=== PATIENT | female | born 1950 | race Caucasian/White ===

== ENCOUNTER → 2018-04-17 10:28 | Outpatient (CLI) | payer MEDICARE, OTHER, SELFPAY ==
--- NOTE | 2018-04-17 | DI.RAD.S_ITS ---
PROCEDURE: XR ANKLE LT MIN 3V INDICATIONS: FALL, PAIN TECHNIQUE: 3 views of the ankle were acquired. COMPARISON: [facility], , ANKLE 3 VIEWS LEFT, 09/30/2007, 11:04. FINDINGS: Bones: Transversely oriented, intra-articular fracture involves the distal fibular metaphysis. Ankle mortise is symmetric. Soft tissues: No tibiotalar joint effusion. Achilles tendon appears normal. Lateral malleolar soft tissue swelling. IMPRESSION: Intra-articular distal fibular fracture. Dictated by: Seth Stallings [facility] Interpreted: Huy Dan MD on 04/17/2018 at 14:07 Approved by: Huy Dan M.D. on 04/17/2018 at 15:41
--- NOTE | 2018-04-17 | DI.RAD.S_ITS ---
PROCEDURE: XR FOOT LT MIN 3V INDICATIONS: FALL, PAIN TECHNIQUE: Arce views of the foot were acquired. COMPARISON: [facility], , FOOT 3V LEFT, 09/30/2007, 11:04. FINDINGS: Bones: No fractures or dislocations. Healed fracture deformity involving the distal shaft of the fifth metatarsal bone. No suspicious bony lesions. Soft tissues: No tibiotalar joint effusion. Achilles tendon appears normal. IMPRESSION: No displaced fracture seen. If there is continued pain, followup exam or additional imaging such as MRI or CT could be performed for further assessment. Dictated by: Seth Stallings [facility] Interpreted: Huy Dan MD on 04/17/2018 at 14:06 Approved by: Huy Dan M.D. on 04/17/2018 at 15:39
--- NOTE | 2018-04-17 | DI.RAD.S_ITS ---
PROCEDURE: XR ORBIT RT INDICATIONS: FALL, PAIN TECHNIQUE: 3 views of the orbits acquired. COMPARISON: None. FINDINGS: Bones: No fractures; orbital rims appear intact throughout. No suspicious bony lesions. Visualized sinuses appear clear. Soft tissues: No suspicious soft tissue calcifications or densities. IMPRESSION: No definite displaced fracture seen. If there is continued pain, followup exam or additional imaging such as MRI or CT could be performed for further assessment. Dictated by: Seth Stallings [facility] Interpreted: Huy Dan MD on 04/17/2018 at 14:04 Approved by: Huy Dan M.D. on 04/17/2018 at 15:39
== END ==
PROVIDERS: PCP Family Medicine; Visit Provider Family Medicine
DX: H57.11 Ocular pain, right eye (principal); S82.832A Other fracture of upper and lower end of left fibula, initial encounter for closed fracture; M79.672 Pain in left foot; M25.572 Pain in left ankle and joints of left foot
CPT/HCPCS: 70200; 73610; 73630

== ENCOUNTER → 2018-04-22 09:26 | Outpatient (CLI) | payer MEDICARE, OTHER, SELFPAY ==
--- NOTE | 2018-04-22 | DI.RAD.S_ITS ---
PROCEDURE: XR ANKLE LT MIN 3V INDICATIONS: LEFT ANKLE FRACTURE TECHNIQUE: 3 views of the ankle were acquired. COMPARISON: [facility], CR, XR ANKLE LT MIN 3V, 04/17/2018, 10:33. FINDINGS: Bones: Transverse fracture of the lateral malleolus is seen, minimally displaced and unchanged since the prior study. Persistent fracture lucency. Spurring at the posterior calcaneus. Tibiotalar joint degenerative spurring is present. Soft tissues: No tibiotalar joint effusion. Achilles tendon appears normal. Lateral soft tissue swelling improved. IMPRESSION: Unchanged alignment of lateral malleolar fracture. Dictated by: Chay Giles M.D. on 04/22/2018 at 10:31 Approved by: Chay Giles M.D. on 04/22/2018 at 10:36
== END ==
PROVIDERS: Family Provider Family Medicine; PCP Family Medicine; Visit Provider Family Medicine
DX: S82.62XD Displaced fracture of lateral malleolus of left fibula, subsequent encounter for closed fracture with routine healing (principal)
CPT/HCPCS: 73610

== ENCOUNTER → 2018-05-13 09:25 | Outpatient (CLI) | payer MEDICARE, OTHER, SELFPAY ==
--- NOTE | 2018-05-13 | DI.RAD.S_ITS ---
PROCEDURE: XR ANKLE LT MIN 3V INDICATIONS: LEFT ANKLE FRACTURE TECHNIQUE: 3 views of the ankle were acquired. COMPARISON: [facility], CR, XR ANKLE LT MIN 3V, 04/17/2018, 10:33. [facility], CR, XR ANKLE LT MIN 3V, 04/22/2018, 10:28. FINDINGS: Bones: Fracture alignment is stable and fracture lucency is less distinct indicating healing of the distal fibular intra-articular metaphyseal fracture. Ankle mortise is symmetric. Small posterior calcaneal enthesophyte. Soft tissues: No tibiotalar joint effusion. Achilles tendon appears normal. IMPRESSION: Slight further healing of distal fibular metaphyseal fracture. Dictated by: Seth HERRERA Interpreted: Chay Giles MD on 05/13/2018 at 9:42 Approved by: Chay Giles M.D. on 05/13/2018 at 13:42
== END ==
PROVIDERS: Family Provider Family Medicine; PCP Family Medicine; Visit Provider Family Medicine
DX: S89.392D Other physeal fracture of lower end of left fibula, subsequent encounter for fracture with routine healing (principal)
CPT/HCPCS: 73610

== ENCOUNTER → 2018-06-06 08:27 | Outpatient (CLI) | payer MEDICARE, OTHER, SELFPAY ==
--- NOTE | 2018-06-06 | DI.RAD.S_ITS ---
PROCEDURE: XR ANKLE LT MIN 3V INDICATIONS: LEFT ANKLE FRACTURE TECHNIQUE: 3 views of the ankle were acquired. COMPARISON: [facility], CR, XR ANKLE LT MIN 3V, 05/13/2018, 9:33. FINDINGS: Bones: No change in alignment of lateral malleolar fracture. There is interval healing callus formation. Posterior plantar calcaneal spurs as before. Soft tissues: No tibiotalar joint effusion. Achilles tendon appears normal. IMPRESSION: Unchanged alignment of lateral malleolar fracture Dictated by: Chay Giles M.D. on 06/06/2018 at 9:28 Approved by: Chay Giles M.D. on 06/06/2018 at 9:30
== END ==
PROVIDERS: PCP Family Medicine; Visit Provider Family Medicine
DX: S82.62XD Displaced fracture of lateral malleolus of left fibula, subsequent encounter for closed fracture with routine healing (principal); M77.32 Calcaneal spur, left foot
CPT/HCPCS: 73610

== ENCOUNTER → 2018-07-04 12:46 | Outpatient (CLI) | payer MEDICARE, OTHER, SELFPAY ==
[2018-07-04 14:02] LABS: Cholesterol 151 mg/dL (140-199); HDL Cholesterol 59 mg/dL (40-60); LDL Cholesterol Calculated 73 mg/dL (<100); Triglycerides 95 mg/dL (35-150)
[2018-07-04 14:07] LABS: Hemoglobin A1C% w Est Avg Glu 7.4 % (4.0-6.0)
== END ==
PROVIDERS: Family Provider Family Medicine; PCP Family Medicine; Visit Provider Family Medicine
DX: E11.9 Type 2 diabetes mellitus without complications (principal)
CPT/HCPCS: 36415; 80061; 83036

== ENCOUNTER → 2018-08-26 13:13 | Outpatient (CLI) | payer MEDICARE, OTHER, SELFPAY ==
[2018-08-26 14:21] LABS: Blood Urea Nitrogen 27 mg/dL (7-17); Estimated Glomerular Filt Rate 55.1 mL/min (>60)
== END ==
PROVIDERS: Family Provider Family Medicine; PCP Family Medicine; Visit Provider Urology
DX: R31.0 Gross hematuria (principal)
CPT/HCPCS: 36415; 82565; 84520

== ENCOUNTER → 2018-08-28 13:14 | Outpatient (CLI) | payer MEDICARE, OTHER, SELFPAY ==
--- NOTE | 2018-08-28 | DI.CT.S_ITS ---
PROCEDURE: CT ABDOMEN PELVIS WO/W CON INDICATIONS: GROSS HEMATURIA TECHNIQUE: After the administration of oral contrast, 5 mm thick sections acquired from the diaphragms to the iliac crests. After the administration of intravenous contrast, 5 mm thick sections acquired from the diaphragms to the symphysis. 5 mm thick coronal and sagittal reformats were acquired. For radiation dose reduction, the following was used: automated exposure control, adjustment of mA and/or kV according to patient size. COMPARISON: [facility], CT, KIDNEY/ URETER/BLADDER, 03/06/2016, 13:11. FINDINGS: Image quality: Excellent. ABDOMEN: Lung bases: Lung bases are clear. Heart size is normal. Solid organs: There is diffuse hepatic steatosis. No focal liver masses. Gallbladder is unremarkable. Biliary system is non-dilated. Pancreas enhances normally. Spleen is normal in size and enhancement. No adrenal nodules. There are multiple calcifications present in both kidneys, likely representing a combination of stones and vascular calcifications. There is a definite right renal calculus measuring 3 mm. There is no hydronephrosis. There are no suspicious enhancing renal lesions. There are multiple bilateral small renal cysts. The ureters are of normal caliber without focal filling defects. No ureteral stones. The bladder has a thin wall. Bowel and peritoneum: Stomach, small and large bowel loops are normal in caliber and wall thickness. No free fluid or air. Sigmoid diverticulosis without evidence of diverticulitis. Nodes and vessels: No retroperitoneal or mesenteric adenopathy by size criteria. Aorta and inferior vena are normal in caliber. Miscellaneous: No ventral hernias. PELVIS: Genitourinary: Bladder wall thickness is normal. Remote hysterectomy. Miscellaneous: Lifting or hernia containing fat. No inguinal adenopathy. Bones: No suspicious bony lesions. No vertebral body compression fractures. There is a calcified left paracentral disc protrusion at L5-S1 impinging on the left S1 nerve root in the left lateral recess. There is a central posterior calcified disc protrusion at L4-L5 indenting the thecal sac. IMPRESSION: 1. Nonobstructing stones. Calcifications in the kidneys likely represent a combination of vascular calcifications and small renal calculi. No hydronephrosis. 2. No evidence of renal masses or ureteral masses. 3. Remote hysterectomy. 4. Hepatic steatosis. 5. Calcified disc protrusions at L4-L5 and L5-S1 as described above. Dictated by: Сергей Powers M.D. on 08/28/2018 at 15:21 Approved by: Сергей Powers M.D. on 08/28/2018 at 15:29
== END ==
PROVIDERS: PCP Family Medicine; Visit Provider Urology
DX: R31.0 Gross hematuria (principal); N20.0 Calculus of kidney; K76.0 Fatty (change of) liver, not elsewhere classified; M51.26 Other intervertebral disc displacement, lumbar region; M51.27 Other intervertebral disc displacement, lumbosacral region; Z90.710 Acquired absence of both cervix and uterus
CPT/HCPCS: 74178; Q9967

== ENCOUNTER → 2018-11-20 15:34 | Outpatient (CLI) | payer MEDICARE, OTHER, SELFPAY ==
--- NOTE | 2018-11-20 | DI.MG.S_ITS ---
BILATERAL DIGITAL SCREENING MAMMOGRAM 3D/2D WITH CAD: 11/20/2018 CLINICAL: Routine screening. Comparison is made to exams dated: 08/08/2017 mammogram, 04/21/2015 mammogram, and 04/13/2014 mammogram - [facility]. The tissue of both breasts is predominantly fatty. Current study was also evaluated with a Computer Aided Detection (CAD) system. There are benign calcifications in both breasts. No significant masses, calcifications, or other findings are seen in either breast. There has been no significant interval change. IMPRESSION: There is no mammographic evidence of malignancy. A 1 year screening mammogram is recommended. This exam was interpreted at Station ID: [id number]. NOTE: For mammograms, a report in lay terms will be sent to the patient. Approximately 15% of breast malignancies will not be visualized mammographically. In the management of a palpable breast mass, a negative mammogram must not discourage biopsy of a clinically suspicious lesion. Electronically Signed By: Ramez patricia/les:11/21/2018 12:58:41 letter sent: Normal Exam ACR BI-RADS Category 2: Benign Finding(s) 3342F
== END ==
PROVIDERS: PCP Family Medicine; Visit Provider Family Medicine
DX: Z12.31 Encounter for screening mammogram for malignant neoplasm of breast (principal)
CPT/HCPCS: 77063; 77067

== ENCOUNTER → 2019-02-24 12:13 | Outpatient (CLI) | payer MEDICARE, OTHER, SELFPAY ==
--- NOTE | 2019-02-24 | DI.RAD.S_ITS ---
PROCEDURE: XR LUMBAR SPINE 2-3V INDICATIONS: LUMBAR RADICUOPATHY TECHNIQUE: 3 views of the lumbar spine were acquired. COMPARISON: [facility], CT, CT ABDOMEN PELVIS WO/W CON, 08/28/2018, 13:22. FINDINGS: Bones: 5 [id number] vertebrae are present. There is straightening of the normal lumbar lordosis. No vertebral body compression fractures. No suspicious bony lesions. There is multilevel intervertebral disc space height loss with reactive endplate sclerosis worst at L4-L5 and L5-S1. There is multilevel facet arthropathy worst at L5-S1 and L4-L5 which results in osseous neuroforaminal narrowing at these levels. Soft tissues: Calcified plaque of the abdominal aorta and branch vessels are noted. Nonobstructive bowel gas pattern. Rounded pelvic phleboliths are noted in the right hemipelvis. IMPRESSION: Moderate multilevel degenerative changes of the lumbar spine resulting in osseous neuroforaminal narrowing at L5-S1 and L4-L5. Dictated by: Chauncey Irizarry M.D. on 02/24/2019 at 15:31 Approved by: Chauncey Irizarry M.D. on 02/24/2019 at 15:34
== END ==
PROVIDERS: PCP Family Medicine; Visit Provider Family Medicine
DX: M47.26 Other spondylosis with radiculopathy, lumbar region (principal); M47.27 Other spondylosis with radiculopathy, lumbosacral region; M48.061 Spinal stenosis, lumbar region without neurogenic claudication; M48.07 Spinal stenosis, lumbosacral region
CPT/HCPCS: 72100

== ENCOUNTER 2019-07-24 13:41 | Day surgery (SDC) | payer MEDICARE, OTHER, SELFPAY ==
--- NOTE | 2019-07-24 | PATH_ITS ---
[facility] Accession Number: [id number] . 01 Material submitted: . colon - TRANSVERSE COLON POLYP . 02 Diagnosis: Transverse Colon, Polyp: Tubular adenoma. MRV 07/28/2019 0939 Local . 02 Electronically signed: . Mynor Martell MD, PhD, Pathologist NPI- [id number] . 01 Gross description: . TRANSVERSE COLON POLYP: Received in formalin is 1 fragment(s) of michel, soft tissue measuring 0.3 x 0.2 x 0.2 cm submitted entirely in 1 cassette(s) /QBJ 07/25/2019 0536 Local . 02 Pathologist provided ICD-10: D12.3 . 02 CPT . 395837 Performed at: 01 [facility] [address] [facility], [place], [place] [id number] MD Jordan Vasquez MD Phone: [phone] Performed at: 02 [facility] [address] [place], [place] [id number] MD Nelly Keene MD Phone: [phone]
[2019-07-24 14:02] VITALS: BP 124/83; PULSE 95; RESP 16; TEMP 36.6; O2SAT 98; BMI 29.7
[2019-07-24] MEDS: SODIUM CHLORIDE 0.9% 1,000 ML 200 ML IV (14:32)
--- NOTE | 2019-07-24 15:15 | PM.HP.1 ---
History of Present Illness History of Present Illness Date Patient Seen: 07/24/19 Time Patient Seen: 15:15 Chief complaint: [id number] Narrative: Patient presents for colorectal screening. T the previous screening 5 years ago which demonstrated adenomatous polyps which were resected. No personal or family history of colon cancer. On further history denies any recent gastrointestinal symptoms. No nausea, vomiting, abdominal pain, loss of appetite, unexplained weight loss, change in bowel habits, diarrhea, constipation, melena, hematochezia, or bright red blood per rectum. Patient History Medical History (Updated 07/24/19 @ 15:16 by Juan Carlos Munoz MD) Diabetes (Acute) Surgical History (Updated 07/24/19 @ 15:16 by Juan Carlos Munoz MD) H/O: hysterectomy (Acute) Family & Social History Social History: household members spouse Tobacco & Substance use: Smoking Status Never smoker alcohol intake never Substance Use Type does not use Meds Home Medications and Allergies Home Medications Medication Instructions Recorded Confirmed Type Prevacid 24Hr 15 mg DAILY 07/24/19 07/24/19 History Vitamin D2 1,000 units DAILY 07/24/19 07/24/19 History atorvastatin 10 mg DAILY 07/24/19 07/24/19 History glipizide 5 mg DAILY 07/24/19 07/24/19 History losartan 50 mg DAILY 07/24/19 07/24/19 History metformin 500 mg BID 07/24/19 07/24/19 History Allergies Allergy/AdvReac Type Severity Reaction Status Date / Time No Known Drug Allergies Allergy Verified 07/24/19 14:24 Review of Systems Review of Systems Narrative: A 10 point review of systems is negative except as noted in the HPI Exam Vital Signs (past 8 hours): - 07/24/19 14:02 Temperature 97.8 F Pulse Rate 95 H Respiratory Rate 16 Blood Pressure 124/83 Pulse Oximetry 98 Oxygen Delivery Method Room Air Narrative Exam Narrative: General-no acute distress, well nourished HEENT-moist mucous membranes, no scleral icterus Neck-supple, no lymphadenopathy Chest- non labored respirations, clear to auscultation bilaterally Cardiac-regular rate no peripheral edema Abdomen-soft, nontender, non distended Extremities-warm, well perfused Neurological-alert and oriented, no focal deficits Assessment & Plan Assessment and plan (1) Screening for colon cancer: Current visit: Yes Status: Acute Assessment & Plan narrative: The patient requires colorectal screening and colonoscopy is recommended. Technical details were discussed. Risks, benefits, alternatives explained. Risks including but not limited to myocardial infarction, aspiration, bleeding, pain, missed lesion, incomplete examination, need for further radiographic studies, colonic perforation, and need for major abdominal surgery were discussed. All questions were answered to their satisfaction, and they are in agreement with this plan.
[2019-07-24] MEDS: fentaNYL 250 MCG/5 ML INJ IV (15:33)
[2019-07-24] MEDS: MIDAZOLAM 5 MG/5 ML VIAL IV (15:34)
--- NOTE | 2019-07-24 15:39 | PM.OP.ENDO ---
Operative Date/Time/Diagnoses Date of procedure: 07/24/19 Time of procedure: 15:39 Pre-op diagnosis: screening colonoscopy Post-op diagnosis: same Procedure & Clinicians Study performed: colonoscopy Same procedure as scheduled: Yes Indications: 69-year-old female last colonoscopy 5 years ago demonstrate adenomas polyps which were resected presents for routine screening Surgeon: Juan Carlos Munoz Procedure Notes SCOAP/Timeout: Performed Procedure in detail: Patient placed in left lateral decubitus position. Time out was performed. Procedural sedation was administered with Versed and Fentanyl. A rectal exam demonstrated no external hemorrhoids no internal masses. Colonoscopy scope was placed into the rectum and advanced through the colon to the cecum. The ileocecal valve was identified. The scope was then slowly withdrawn examining colon thoroughly in all directions. The colonoscopy was notable for the following 1. Adenomatous appearing polyp within transverse colon resected with biopsy forceps. Hemostatic. 2. Sigmoid diverticulosis 3. Quality of prep excellent Scope withdrawal time: 6 Sedation minutes: 18 Findings: diverticulosis Specimen(s): other Complications: none Impression: Polyp Post-procedure Recommendations: Colonscopy in 5 years Disposition: same day surgery
[2019-07-24 15:42] VITALS: BP 119/68; PULSE 68; RESP 12; TEMP 36.4; O2SAT 95
[2019-07-24 15:47] VITALS: BP 100/62; PULSE 68; RESP 12; O2SAT 94
[2019-07-24 15:53] VITALS: BP 102/64; PULSE 76; RESP 14; O2SAT 97
[2019-07-24 15:54] VITALS: BP 101/67; PULSE 68; RESP 14; O2SAT 98
[2019-07-24 16:37] VITALS: BP 106/72; PULSE 69; RESP 12; TEMP 36.2; O2SAT 96
== END 2019-07-24 16:25 | disposition home or self-care (01) ==
PROVIDERS: PCP Family Medicine; Referring Provider Family Medicine; Visit Provider Surgery
PROC: 0DJD8ZZ Inspection of Lower Intestinal Tract, Via Natural or Artificial Opening Endoscopic (ICD-10-PCS; CPT 45378; principal; 2019-07-24 14:30)
DX: Z12.11 Encounter for screening for malignant neoplasm of colon (principal); Z86.010 Personal history of colon polyps; K57.30 Diverticulosis of large intestine without perforation or abscess without bleeding; D12.3 Benign neoplasm of transverse colon
CPT/HCPCS: 45380; 99152; J2250; J3010

== ENCOUNTER → 2021-04-12 12:27 | Outpatient (CLI) | payer MEDICARE, OTHER, SELFPAY ==
--- NOTE | 2021-04-12 | DI.MG.S_ITS ---
BILATERAL DIGITAL SCREENING MAMMOGRAM 3D/2D WITH CAD: 04/12/2021 CLINICAL: Routine screening. Comparison is made to exams dated: 11/20/2018 mammogram, 08/08/2017 mammogram, and 04/21/2015 mammogram - [facility]. The tissue of both breasts is predominantly fatty. Current study was also evaluated with a Computer Aided Detection (CAD) system. There are benign calcifications in both breasts. No significant masses, calcifications, or other findings are seen in either breast. There has been no significant interval change. IMPRESSION: BENIGN There is no mammographic evidence of malignancy. A 1 year screening mammogram is recommended. This exam was interpreted at Station ID: [id number]. NOTE: For mammograms, a report in lay terms will be sent to the patient. Approximately 15% of breast malignancies will not be visualized mammographically. In the management of a palpable breast mass, a negative mammogram must not discourage biopsy of a clinically suspicious lesion. Electronically Signed By: Jose mesa/les:04/12/2021 13:29:01 letter sent: Normal Exam ACR BI-RADS Category 2: Benign Finding(s) [id number]
== END ==
PROVIDERS: PCP Family Medicine; Referring Provider Family Medicine; Visit Provider Family Medicine
DX: Z12.31 Encounter for screening mammogram for malignant neoplasm of breast (principal)
CPT/HCPCS: 77063; 77067

== ENCOUNTER → 2021-04-12 12:30 | Outpatient (CLI) | payer MEDICARE, OTHER, SELFPAY ==
--- NOTE | 2021-04-12 | DI.RAD.S_ITS ---
PROCEDURE: XR DEXA AXIAL SKELETON INDICATIONS: Asymptomatic menopausal state COMPARISON: None. FINDINGS: This blank DEXA report has been sent in error by the PACS system. The correct and complete report will be forthcoming in 1-2 days. Thank you for your patience and understanding. Dictated by: Argenis Trujillo MD, PhD on 04/12/2021 at 13:10 Approved by: Argenis Trujillo MD, PhD on 04/12/2021 at 13:10
== END ==
PROVIDERS: PCP Family Medicine; Referring Provider Family Medicine; Visit Provider Family Medicine
DX: Z78.0 Asymptomatic menopausal state (principal); E11.9 Type 2 diabetes mellitus without complications; Z82.62 Family history of osteoporosis
CPT/HCPCS: 77080

== ENCOUNTER → 2023-04-03 16:55 | Outpatient (CLI) | payer MEDICARE, SELFPAY ==
--- NOTE | 2023-04-03 | DI.MG.S_ITS ---
BILATERAL DIGITAL SCREENING MAMMOGRAM 3D/2D WITH CAD: 04/03/2023 CLINICAL: Routine screening. Comparison is made to exams dated: 04/12/2021 mammogram, 11/20/2018 mammogram, 08/08/2017 mammogram, 04/21/2015 mammogram, and 04/13/2014 mammogram - [facility]. Both breasts are almost entirely fatty (category a/<25% glandular tissue). Current study was also evaluated with a Computer Aided Detection (CAD) system. There are benign calcifications in both breasts. No significant masses, calcifications, or other findings are seen in either breast. There has been no significant interval change. IMPRESSION: BENIGN There is no mammographic evidence of malignancy. A 1 year screening mammogram is recommended. Based on the Tyrer Cuzick model (a risk assessment model) the patient's lifetime risk is 2.2% and her 10 year risk is 1.6%. According to the ACR, ACS, and NCCN guidelines, an annual breast MRI exam along with mammogram is recommended if the patient's lifetime risk is 20% or greater. This exam was interpreted at Station ID: [id number]. NOTE: For mammograms, a report in lay terms will be sent to the patient. Approximately 15% of breast malignancies will not be visualized mammographically. In the management of a palpable breast mass, a negative mammogram must not discourage biopsy of a clinically suspicious lesion. Electronically Signed By: Mauro sandy/les:04/04/2023 07:24:39 letter sent: Normal Exam ACR BI-RADS Category 2: Benign Finding(s) 3342F
== END ==
PROVIDERS: PCP Family Medicine; Referring Provider Family Medicine; Visit Provider Family Medicine
DX: Z12.31 Encounter for screening mammogram for malignant neoplasm of breast (principal)
CPT/HCPCS: 77063; 77067

== ENCOUNTER → 2023-10-15 11:33 | Outpatient (CLI) | payer MEDICARE, SELFPAY ==
[2023-10-15 12:26] LABS: Add Manual Diff / Slide Review NO; Basophils Absolute Auto 100 /uL (0-100); Basophils Percent Auto 1.1 % (0-2); Eosinophils Absolute Auto 100 /uL (0-450); Eosinophils Percent Auto 2.5 % (2-4); Hematocrit 33.6 % (36-46); Hemoglobin 11.2 g/dL (12.0-16.0); Lymphocytes Absolute Auto 2500 /uL (1100-4500); Mean Corpuscular HGB Conc 33.3 % (30-36); Mean Corpuscular Hemoglobin 29.1 PG (26-34); Mean Corpuscular Volume 87.3 fL (80-100); Monocytes Absolute Auto 400 /uL (0-900); Monocytes Percent Auto 6.8 % (3-14); Neutrophils Absolute Auto 2700 /uL (1500-7000); Neutrophils Percent Auto 46.6 % (50-75); Platelet Count 233 X10^3/uL (150-400); Red Blood Cell Count 3.85 X10^6/uL (4.0-5.2); Red Cell Distribution Width 13.6 % (11.6-14.8); White Blood Cell Count 5.9 X10^3/uL (4.5-11.0)
[2023-10-15 12:33] LABS: Hemoglobin A1C% w Est Avg Glu 6.3 % (4.0-6.0)
[2023-10-15 12:36] LABS: Alanine Aminotransferase 16 IU/L (<35); Albumin 4.6 g/dL (3.5-5.0); Albumin Globulin Ratio 1.5 (1.0-2.8); Alkaline Phosphatase 64 U/L (38-126); Aspartate Aminotransferase 23 IU/L (14-36); BUN Creatinine Ratio 31.6 (6-22); Bilirubin Total 0.3 mg/dL (0.2-1.3); Blood Urea Nitrogen 31 mg/dL (7-17); Carbon Dioxide 26 mmol/L (22-32); Chloride 107 mmol/L (98-107); Cholesterol 136 mg/dL (140-199); Estimated Glomerular Filt Rate > 60 mL/min (>60); Globulin 3.1 g/dL (1.7-4.1); Glucose 73 mg/dL (80-110); HDL Cholesterol 54 mg/dL (40-60); HEMOLYSIS < 15 (0-50); LDL Cholesterol Calculated 63 mg/dL (<100); Potassium 4.5 mmol/L (3.4-5.1); Sodium 140 mmol/L (137-145); Total Protein 7.7 g/dL (6.3-8.2); Triglycerides 96 mg/dL (35-150)
[2023-10-16 15:48] LABS: Creatinine Urine Random 141.3 mg/dL
[2023-10-16 15:51] LABS: Microalbumi Creatinin Ratio Ur 13.4 ug/mg CR (<30); Microalbumin Urine Random 1.9 mg/dL (0-1.6)
== END ==
LOC: LAB 11:35
PROVIDERS: PCP Student in an Organized Health Care Education/Training Program; Referring Provider Student in an Organized Health Care Education/Training Program; Visit Provider Student in an Organized Health Care Education/Training Program
DX: E11.9 Type 2 diabetes mellitus without complications (principal); I10 Essential (primary) hypertension
CPT/HCPCS: 36415; 80053; 80061; 82043; 82570; 83036; 85025

== ENCOUNTER → 2024-01-15 09:48 | Outpatient (CLI) | payer MEDICARE, SELFPAY ==
[2024-01-15 10:35] LABS: Add Manual Diff / Slide Review NO; Basophils Absolute Auto 100 /uL (0-100); Basophils Percent Auto 0.9 % (0-2); Eosinophils Absolute Auto 100 /uL (0-450); Eosinophils Percent Auto 1.8 % (2-4); Hematocrit 33.5 % (36-46); Hemoglobin 11.3 g/dL (12.0-16.0); Lymphocytes Absolute Auto 2100 /uL (1100-4500); Lymphocytes Percent Auto 36.2 % (25-40); Mean Corpuscular HGB Conc 33.8 % (30-36); Mean Corpuscular Hemoglobin 29.6 PG (26-34); Mean Corpuscular Volume 87.8 fL (80-100); Monocytes Absolute Auto 300 /uL (0-900); Monocytes Percent Auto 5.9 % (3-14); Neutrophils Absolute Auto 3300 /uL (1500-7000); Neutrophils Percent Auto 55.2 % (50-75); Platelet Count 242 X10^3/uL (150-400); Red Blood Cell Count 3.81 X10^6/uL (4.0-5.2); Red Cell Distribution Width 13.6 % (11.6-14.8); White Blood Cell Count 5.9 X10^3/uL (4.5-11.0)
[2024-01-15 11:02] LABS: Hemoglobin A1C% w Est Avg Glu 6.7 % (4.0-6.0)
[2024-01-15 11:14] LABS: Alanine Aminotransferase 17 IU/L (<35); Albumin 4.3 g/dL (3.5-5.0); Albumin Globulin Ratio 1.6 (1.0-2.8); Alkaline Phosphatase 60 U/L (38-126); Aspartate Aminotransferase 20 IU/L (14-36); BUN Creatinine Ratio 27.8 (6-22); Bilirubin Total 0.4 mg/dL (0.2-1.3); Blood Urea Nitrogen 30 mg/dL (7-17); Calcium 9.6 mg/dL (8.4-10.2); Carbon Dioxide 20 mmol/L (22-32); Chloride 109 mmol/L (98-107); Cholesterol 160 mg/dL (140-199); Estimated Glomerular Filt Rate 54 mL/min (>60); Globulin 2.7 g/dL (1.7-4.1); Glucose 127 mg/dL (80-110); HDL Cholesterol 65 mg/dL (40-60); HEMOLYSIS < 15 (0-50); LDL Cholesterol Calculated 62 mg/dL (<100); Potassium 4.9 mmol/L (3.4-5.1); Sodium 138 mmol/L (137-145); Triglycerides 165 mg/dL (35-150)
[2024-01-15 14:35] LABS: Creatinine Urine Random 124.34 mg/dL
[2024-01-15 14:40] LABS: Microalbumin Urine Random 4.1 mg/dL (0-1.6)
== END ==
PROVIDERS: PCP Student in an Organized Health Care Education/Training Program; Referring Provider Student in an Organized Health Care Education/Training Program; Visit Provider Student in an Organized Health Care Education/Training Program
DX: E11.9 Type 2 diabetes mellitus without complications (principal); I10 Essential (primary) hypertension
CPT/HCPCS: 36415; 80053; 80061; 82043; 82570; 83036; 85025

== ENCOUNTER → 2024-02-19 09:13 | Outpatient (CLI) | payer MEDICARE, SELFPAY ==
[2024-02-20 16:57] LABS: Bilirubin Urine UA 2+ (NEGATIVE); Glucose Urine UA NEGATIVE (Negative); Ketones Urine UA TRACE (NEGATIVE); Leukocyte Esterase Urine UA TRACE (NEGATIVE); Nitrite Urine UA POSITIVE (Negative); Occult Blood Urine UA 3+ (Negative); Protein Urine UA 3+ (Negative); Specific Gravity Urine UA >=1.030 (1.000-1.035)
[2024-02-20 17:20] LABS: Appearance Urine UA TURBID; Color Urine UA BROWN
[2024-02-20 17:21] LABS: RBC Urine >100/HPF (0-5/HPF); WBC Urine 30-100/HPF (0-5/HPF)
[2024-02-20 17:22] LABS: Bacteria Urine Moderate (10-30); Culture Indicated Urine Cult Not Indicated; Ictotest Urine Negative (Negative); Squamous Epithelial Cell Urine 1-5 /HPF (0-5/HPF); Urine Volume Low Vol <10mL (spun)
== END ==
PROVIDERS: PCP Student in an Organized Health Care Education/Training Program; Visit Provider Student in an Organized Health Care Education/Training Program
DX: R31.9 Hematuria, unspecified (principal)
CPT/HCPCS: 81001; 87086

== ENCOUNTER → 2024-02-28 09:46 | Outpatient (CLI) | payer MEDICARE, SELFPAY ==
[2024-02-28 10:47] LABS: Appearance Urine UA CLEAR; Bilirubin Urine UA NEGATIVE (NEGATIVE); Color Urine UA YELLOW; Glucose Urine UA NEGATIVE (Negative); Ketones Urine UA NEGATIVE (NEGATIVE); Leukocyte Esterase Urine UA NEGATIVE (NEGATIVE); Nitrite Urine UA NEGATIVE (Negative); Occult Blood Urine UA NEGATIVE (Negative); Protein Urine UA NEGATIVE (Negative); Specific Gravity Urine UA 1.025 (1.000-1.035); Urobilinogen Urine UA 0.2 E.U./dL (0.2)
[2024-02-28 10:56] LABS: Bacteria Urine None Seen; Culture Indicated Urine Cult Not Indicated; RBC Urine None Seen (0-5/HPF); Squamous Epithelial Cell Urine 1-5 /HPF (0-5/HPF); Urine Volume 10mL (spun); WBC Urine 1-5/HPF (0-5/HPF)
== END ==
PROVIDERS: PCP Student in an Organized Health Care Education/Training Program; Visit Provider Student in an Organized Health Care Education/Training Program
DX: N39.0 Urinary tract infection, site not specified (principal)
CPT/HCPCS: 81001

== ENCOUNTER → 2024-03-03 18:04 | Outpatient (CLI) | payer MEDICARE, SELFPAY | PROVIDERS: PCP Student in an Organized Health Care Education/Training Program; Visit Provider Nurse Practitioner Family | DX: R30.0 Dysuria (principal); N89.8 Other specified noninflammatory disorders of vagina | CPT/HCPCS: 87086; 87210 ==

== ENCOUNTER → 2024-03-21 14:08 | Outpatient (CLI) | payer MEDICARE, SELFPAY ==
[2024-03-21 15:09] LABS: Hemoglobin A1C% w Est Avg Glu 6.5 % (4.0-6.0)
== END ==
PROVIDERS: PCP Student in an Organized Health Care Education/Training Program; Referring Provider Student in an Organized Health Care Education/Training Program; Visit Provider Student in an Organized Health Care Education/Training Program
DX: E11.21 Type 2 diabetes mellitus with diabetic nephropathy (principal)
CPT/HCPCS: 36415; 83036

== ENCOUNTER 2024-09-22 09:25 | Day surgery (SDC) | payer MEDICARE, SELFPAY ==
[2024-09-22] MEDS: LACTATED RINGERS 1,000 ML 42 ML IV (09:51)
[2024-09-22 09:55] VITALS: BP 121/77; PULSE 87; RESP 16; TEMP 36.2; O2SAT 97
--- NOTE | 2024-09-22 10:05 | P.HP_ITS ---
History of Present Illness History of Present Illness Date Patient Seen: 09/22/24 Chief complaint: Colonoscopy Narrative: History of colon polyps [facility] Medical History (Updated 08/25/24 @ 14:03 by Judy Peters MD) Routine medical exam (05/21/02) Other specified counseling (03/26/02) Atopic dermatitis GERD (gastroesophageal reflux disease) Personal history of kidney stones Hypertension Hyperlipidemia Obesity (BMI 30-39.9) Obstructive sleep apnea Snoring Diabetes Surgical History H/O: hysterectomy Social History (Updated 08/25/24 @ 13:31 by Quita Meyer MA) marital status: number of children: 5 household members: spouse lives independently: Yes caregiver/support person: No housing: house pets and animals: No education level: high school occupational status: previously employed current occupational exposures/hazards: No donita/denominational: day special donita needs: No travel history: recent leisure activities: art, reading and volunteer work seatbelt use: always water heater temp set < 120 deg: Yes working smoke detector in home: Yes fire extinguisher in home: No carbon monox detector in home: No firearms in home: No do you feel safe at home: Yes Smoking Status: Never smoker alcohol intake: never during the past year weight has: remained stable well-balanced diet: daily or most days daily servings fruits/ve-4 caffeine: No eating out: rarely or never Type(s) of exercise: walking and occasional exercise frequency: 1-2 times per week duration: 15-30 minutes/day Meds Home Medications and Allergies Home Medications Medication Instructions Recorded Confirmed Type Prevacid 24Hr 15 mg PO DAILY 07/23/23 08/25/24 History cyanocobalamin (vitamin B-12) 500 250 mcg PO DAILY 07/23/23 08/25/24 History mcg tablet (B-12 DOTS) vitamins A,C,Q-sjxu-cujysm 2,148 2 tab PO DAILY 07/23/23 08/25/24 History mcg-113 mg-45 mg-17.4 mg tablet (PreserVision AREDS) metronidazole 1 % topical cream 1 applic topical BEDTIME #60 grams 01/21/24 08/25/24 Rx cefdinir 300 mg capsule 300 mg PO BID #10 caps 03/03/24 08/25/24 Rx atorvastatin 10 mg tablet 10 mg PO DAILY #90 tabs 03/21/24 08/25/24 Rx losartan 100 mg tablet 100 mg PO DAILY #90 tabs 03/21/24 08/25/24 Rx metformin 500 mg tablet 500 mg PO BID #240 tabs 03/21/24 08/25/24 Rx tirzepatide 5 mg/0.5 mL 5 mg (0.5 mL) SUBCUT QWEEK #9 mL 07/01/24 09/22/24 Rx subcutaneous pen injector (Mounjaro) sodium,potassium,mag sulfates 17.5 See Rx Instructions PO .COMPLEX 09/03/24 Rx gram-3.13 gram-1.6 gram oral soln #354 mL (Suprep Bowel Prep Kit) metformin 500 mg tablet 500 mg PO BID 09/22/24 09/22/24 History Allergies Allergy/AdvReac Type Severity Reaction Status Date / Time No Known Drug Allergies Allergy Verified 09/22/24 09:38 Exam Narrative Exam Narrative: Oropharynx free of lesions Chest clear to auscultation percussion Cardiac exam reveals no S3 or murmur Assessment & Plan Assessment & Plan narrative: History of colon polyps need for follow-up colonoscopy. Risks, benefits, alternatives have been explained. Time-Based Coding :: [TOTAL MINUTES] spent with patient and on the chart (including review of chart, obtaining history, exam, reviewing outside data, placing orders, documenting exam and treatment plan, and counseling patient) on [DATE]. PROFEE Professor Of Social Work Document charge(s): No
--- NOTE | 2024-09-22 10:07 | PM.OP.COLON ---
Operative Date/Time/Diagnoses Date of procedure: 09/22/24 Pre-op diagnosis: See indication and findings Procedure & Clinicians Study performed: Colonoscopy Same procedure as scheduled: Yes Indications: History of colon polyps Surgeon: Mayelin Randolph Procedure Notes Procedure in detail: After informed consent was obtained the patient was placed in left lateral decubitus position. Video colonoscope was introduced the rectum slowly advanced cecum. On slow withdrawal mucosa was carefully examined. The scope was removed. The patient tolerated the procedure well. Blood loss none Complications none Sedation mac Findings 1. Normal colonoscopy to cecum This may be patient's last colonoscopy but if in excellent health she might qualify for another 1 in 5-7 years.
[2024-09-22 11:09] VITALS: BP 91/38; PULSE 72; RESP 13; TEMP 36.2; O2SAT 95
[2024-09-22 11:13] VITALS: BP 97/59; PULSE 69; RESP 14; O2SAT 97
[2024-09-22 11:18] VITALS: BP 99/55; PULSE 69; RESP 19; O2SAT 97
[2024-09-22 11:23] VITALS: BP 93/58; PULSE 67; RESP 15; TEMP 36.2; O2SAT 97
== END 2024-09-22 11:47 | disposition home or self-care (01) ==
PROVIDERS: PCP Student in an Organized Health Care Education/Training Program; Referring Provider Internal Medicine Gastroenterology; Visit Provider Internal Medicine Gastroenterology
PROC: 0DJD8ZZ Inspection of Lower Intestinal Tract, Via Natural or Artificial Opening Endoscopic (ICD-10-PCS; CPT 45378; principal; 2024-09-22 10:30)
DX: Z12.11 Encounter for screening for malignant neoplasm of colon (principal); Z86.0100 Personal history of colon polyps, unspecified
CPT/HCPCS: G0105; J2704

== ENCOUNTER → 2024-10-01 13:23 | Outpatient (CLI) | payer MEDICARE, SELFPAY ==
[2024-10-01 15:05] LABS: Add Manual Diff / Slide Review NO; Basophils Absolute Auto 0 /uL (0-100); Basophils Percent Auto 0.8 % (0-2); Eosinophils Absolute Auto 100 /uL (0-450); Eosinophils Percent Auto 1.8 % (2-4); Hemoglobin 11.2 g/dL (12.0-16.0); Lymphocytes Absolute Auto 1700 /uL (1100-4500); Lymphocytes Percent Auto 37.6 % (25-40); Mean Corpuscular Hemoglobin 28.8 PG (26-34); Mean Corpuscular Volume 87.3 fL (80-100); Monocytes Absolute Auto 300 /uL (0-900); Monocytes Percent Auto 5.9 % (3-14); Neutrophils Absolute Auto 2500 /uL (1500-7000); Neutrophils Percent Auto 53.9 % (50-75); Platelet Count 263 X10^3/uL (150-400); Red Blood Cell Count 3.89 X10^6/uL (4.0-5.2); Red Cell Distribution Width 14.1 % (11.6-14.8); White Blood Cell Count 4.6 X10^3/uL (4.5-11.0)
[2024-10-01 15:12] LABS: Hemoglobin A1C% w Est Avg Glu 6.2 % (4.0-6.0)
[2024-10-01 15:32] LABS: Chloride 106 mmol/L (98-107); HEMOLYSIS < 15 (0-50); Potassium 5.1 mmol/L (3.4-5.1); Sodium 139 mmol/L (137-145)
[2024-10-01 15:34] LABS: Alanine Aminotransferase 19 IU/L (<35); Albumin 4.4 g/dL (3.5-5.0); Albumin Globulin Ratio 1.5 (1.0-2.8); Alkaline Phosphatase 58 U/L (38-126); Aspartate Aminotransferase 26 IU/L (14-36); BUN Creatinine Ratio 29.5 (6-22); Bilirubin Total 0.4 mg/dL (0.2-1.3); Blood Urea Nitrogen 33 mg/dL (7-17); Calcium 9.5 mg/dL (8.4-10.2); Carbon Dioxide 24 mmol/L (22-32); Cholesterol 170 mg/dL (140-199); Estimated Glomerular Filt Rate 52 mL/min (>60); Globulin 2.9 g/dL (1.7-4.1); Glucose 103 mg/dL (80-110); HDL Cholesterol 57 mg/dL (40-60); LDL Cholesterol Calculated 84 mg/dL (<100); Total Protein 7.3 g/dL (6.3-8.2); Triglycerides 147 mg/dL (35-150)
== END ==
PROVIDERS: PCP Student in an Organized Health Care Education/Training Program; Referring Provider Student in an Organized Health Care Education/Training Program; Visit Provider Student in an Organized Health Care Education/Training Program
DX: E78.00 Pure hypercholesterolemia, unspecified (principal); I10 Essential (primary) hypertension; E11.21 Type 2 diabetes mellitus with diabetic nephropathy
CPT/HCPCS: 36415; 80053; 80061; 83036; 85025

== ENCOUNTER → 2024-10-02 13:18 | Outpatient (CLI) | payer MEDICARE, SELFPAY ==
--- NOTE | 2024-10-02 13:19 | DI.MG.S_ITS ---
MM screening mammo BI: 10/02/2024. BI-RADS: 2 CLINICAL: 74-year old female for bilateral screening mammogram. Tyrer-Cuzick lifetime risk of 2.4%. No personal or first-degree family history of breast cancer. PRIOR EXAMS 04/03/2023, 04/12/2021, 11/20/2018, 08/08/2017, 04/21/2015. MAMMOGRAPHY TECHNIQUE: 2D and 3D (tomosynthesis) digital mammographic views obtained, with additional images as needed for full coverage. Current study was also evaluated with a Computer Aided Detection (CAD) system. DENSITY B. There are scattered areas of fibroglandular density. MAMMOGRAPHY FINDINGS Bilateral: Benign-appearing calcifications noted. There are no suspicious masses, calcifications, or other findings in the breast. No significant change from comparison. IMPRESSION: * No evidence of malignancy with benign findings. RECOMMENDATIONS Bilateral * Annual screening mammography. OVERALL ASSESSMENT CATEGORY BI-RADS-2: Benign. The [employer] recommends annual screening mammography beginning at age 40 for women with average risk of breast cancer. ELECTRONICALLY SIGNED: Li Stevens M.D. on 10/03/2024 at 10:11:33 AM PT Interpreting Station ID: [id number]
--- NOTE | 2024-10-02 13:19 | DI.ECHO.S_ITS ---
[place] [facility]+ [facility] : : [address] : : [place] : : [id number] : : Phone: [phone] Echocardiogram Report + + :Name: KAMAR LANGSTON Study Date: 10/02/2024 Height: 65 in : :[facility] ReadingLocation: Weight: 155 lb : : Gender: Female BSA: 1.8 m2 : :: 1950 Age: 74 yrs BP: 141/88 mmHg: :Reason For Study: HYPERTENSION : :Ordering Physician: LUARA, : :MONICA Performed By: Fabi Beck : :Referring: MONICA SANCHEZ : + + Interpretation Summary 1. Borderline left ventricular contractility with estimate ejection fraction of 50 to 55%. There is septal bounce noted. No LVH. Grade 1 diastolic dysfunction. 2. The right ventricular contractility is normal. 3. All cardiac chambers are of normal size. 4. No significant valvular abnormalities. 5. No obvious intracardiac shunts. 6. No obvious intracardiac masses nor thrombi. 7. No hemodynamically significant pericardial effusion. 8. Low right-sided filling pressures. Conclusion: Low normal left ventricular systolic function without significant valvular abnormalities. Procedure: A two-dimensional transthoracic echocardiogram with color flow and Doppler was performed. The study quality was technically adequate. There is no prior echocardiogram noted for this patient. The patient was in sinus rhythm with heart rates between 80-91 bpm during the exam. Left Ventricle: The left ventricle is normal in size and wall thickness. The ejection fraction is estimated to be 50-55%. Right Ventricle: The right ventricle is normal in size and function. Atria: The left atrial size is normal. Right atrial size is normal. There is no Doppler evidence for an interatrial shunt. Mitral Valve: The mitral valve leaflets appear to open well. There is mild mitral annular calcification. There is trace mitral regurgitation. Aortic Valve: The aortic valve is trileaflet. The aortic valve opens well. There is no aortic valve stenosis. No aortic regurgitation is present. Tricuspid Valve: The tricuspid valve leaflets are thin and pliable. No tricuspid regurgitation. Pulmonary artery pressures cannot be estimated because of the lack of a measurable TR jet velocity. Pulmonic Valve: The pulmonic valve leaflets are thin and pliable; valve motion is normal. There is no pulmonic valvular regurgitation. Great Vessels: The aortic root is normal size. The dimensions of the ascending aorta are normal. The IVC is of normal diameter and collapses greater than 50% with a sniff. This suggests a low right atrial pressure of 3 mm Hg. Pericardium/ Pleura There is no pericardial effusion. There is no pleural effusion. MMode/2D Measurements & Calculations LVIDd: 4.3 cm LVOT diam: 2.0 cm LVIDs: 3.2 cm Ao root diam: 3.1 cm FS: 26.4 % asc Aorta Diam: 3.1 cm EPSS: 0.85 cm Ao Arch Diam (Prox Trans): 2.6 cm IVSd: 0.80 cm LVPWd: 0.67 cm LV monson. diameter/BSA (cm/m^2): 2.4 LV sys. diameter/BSA (cm/m^2): 1.8 LA A2 area: 15.2 cm2 RA long axis: 4.5 cm LA A4 area: 15.4 cm2 RA area: 12.9 cm2 LA length (vol): 4.7 cm RA vol: 31.2 ml LA vol: 42.0 ml RA : 17.6 ml/m2 LA vol index: 23.7 ml/m2 IVC diam: 1.6 cm RVD1 (basal): 2.7 cm RVD2 (mid): 2.4 cm TAPSE: 1.8 cm Doppler Measurements & Calculations Ao V2 max: 116.1 cm/sec LVOT Max Eleuterio: 90.1 cm/sec Ao V2 mean: 79.5 cm/sec LV V1 max P.2 mmHg Ao max P.4 mmHg LV V1 VTI: 17.9 cm Ao mean P.8 mmHg JOHANN(I,D): 2.6 cm2 Ao V2 VTI: 21.8 cm JOHANN(V,D): 2.4 cm2 sev ratio: 0.82 JOHANN indexed to BSA (cm^2/m^2): 1.5 MV E max eleuterio: 65.4 cm/sec PA V2 max: 88.5 cm/sec MV A max eleuterio: 102.1 cm/sec PA V2 mean: 62.4 cm/sec MV E/A: 0.64 PA mean P.7 mmHg Med Peak E' Eleuterio: 7.2 cm/sec PA pr(Accel): 49.5 mmHg E/E' med: 9.1 MV dec time: 0.18 sec SV(LVOT): 56.4 ml Reading Physician:JOHN
== END ==
PROVIDERS: PCP Student in an Organized Health Care Education/Training Program; Referring Provider Student in an Organized Health Care Education/Training Program; Visit Provider Student in an Organized Health Care Education/Training Program
DX: Z12.31 Encounter for screening mammogram for malignant neoplasm of breast (principal); R92.1 Mammographic calcification found on diagnostic imaging of breast; I34.81 Nonrheumatic mitral (valve) annulus calcification; I10 Essential (primary) hypertension
CPT/HCPCS: 77063; 77067; 93306

== ENCOUNTER → 2024-12-18 16:07 | Outpatient (CLI) | payer MEDICARE, SELFPAY ==
[2024-12-18 16:56] LABS: Blood Urea Nitrogen 40 mg/dL (7-17); Calcium 10.6 mg/dL (8.4-10.2); Carbon Dioxide 24 mmol/L (22-32); Chloride 102 mmol/L (98-107); Estimated Glomerular Filt Rate 40 mL/min (>60); Glucose 118 mg/dL (70-99); HEMOLYSIS < 15 (0-50); Potassium 5.5 mmol/L (3.4-5.1); Sodium 137 mmol/L (137-145)
== END ==
PROVIDERS: PCP Student in an Organized Health Care Education/Training Program
DX: N18.30 Chronic kidney disease, stage 3 unspecified (principal); E11.22 Type 2 diabetes mellitus with diabetic chronic kidney disease; Z86.79 Personal history of other diseases of the circulatory system
CPT/HCPCS: 36415; 80048

== ENCOUNTER → 2025-02-19 14:59 | Outpatient (CLI) | payer MEDICARE, SELFPAY ==
[2025-02-19 15:25] LABS: Appearance Urine UA CLEAR; Bilirubin Urine UA NEGATIVE (NEGATIVE); Color Urine UA YELLOW; Glucose Urine UA NEGATIVE (Negative); Ketones Urine UA NEGATIVE (NEGATIVE); Leukocyte Esterase Urine UA TRACE (NEGATIVE); Nitrite Urine UA NEGATIVE (Negative); Occult Blood Urine UA NEGATIVE (Negative); Protein Urine UA NEGATIVE (Negative); Specific Gravity Urine UA 1.020 (1.000-1.035); Urobilinogen Urine UA 0.2 E.U./dL (0.2)
[2025-02-19 15:32] LABS: pH Urine UA 5.5 (4.5-8.0)
[2025-02-19 15:37] LABS: Add Manual Diff / Slide Review NO; Hematocrit 34.1 % (36-46); Hemoglobin 11.1 g/dL (12.0-16.0); Lymphocytes Absolute Auto 2300 /uL (1100-4500); Mean Corpuscular HGB Conc 32.7 % (30-36); Mean Corpuscular Hemoglobin 28.6 PG (26-34); Mean Corpuscular Volume 87.7 fL (80-100); Platelet Count 254 X10^3/uL (150-400)
[2025-02-19 15:49] LABS: Protein (Total) Urine Random 8 mg/dL (0-12); Protein Creatinine Ratio Urine 0.07 GRAM/24H
[2025-02-19 16:00] LABS: Blood Urea Nitrogen 33 mg/dL (7-17); Calcium 9.8 mg/dL (8.4-10.2); Carbon Dioxide 26 mmol/L (22-32); Chloride 102 mmol/L (98-107); Estimated Glomerular Filt Rate 45 mL/min (>60); Glucose 159 mg/dL (70-99); HEMOLYSIS < 15 (0-50); Potassium 4.5 mmol/L (3.4-5.1); Sodium 137 mmol/L (137-145)
[2025-02-19 16:01] LABS: Culture Indicated Urine Specimen Cultured
[2025-02-19 16:17] LABS: Vitamin D 25 Hydroxy (D3) 83.8 ng/mL (30.0-100.0)
== END ==
PROVIDERS: PCP Student in an Organized Health Care Education/Training Program; Referring Provider Internal Medicine Nephrology; Visit Provider Internal Medicine Nephrology
DX: N18.30 Chronic kidney disease, stage 3 unspecified (principal)
CPT/HCPCS: 36415; 80048; 81001; 82306; 82570; 83970; 84156; 85025; 87086

== ENCOUNTER → 2025-03-31 14:27 | Outpatient (CLI) | payer MEDICARE, SELFPAY ==
[2025-03-31 15:03] LABS: Hemoglobin A1C% w Est Avg Glu 6.5 % (4.0-6.0)
== END ==
PROVIDERS: PCP Student in an Organized Health Care Education/Training Program; Referring Provider Student in an Organized Health Care Education/Training Program; Visit Provider Student in an Organized Health Care Education/Training Program
DX: E11.9 Type 2 diabetes mellitus without complications (principal)
CPT/HCPCS: 36415; 83036